=== PATIENT | male | born 1960 | race African-American/Black ===

== ENCOUNTER 2016-03-24 12:07 | Emergency (ER) | payer BC ==
[2016-03-24] MEDS ORDERED: LABETALOL 100 MG/20 ML VIAL ONE (14:01)
[2016-03-24] MEDS ORDERED: cloNIDine 0.1 MG TAB ONE (15:05)
== END 2016-03-24 16:02 | disposition home or self-care (01) ==
LOC: ER 12:07
DX: I10 Essential (primary) hypertension (principal)
CPT/HCPCS: 36415; 80053; 81001; 82553; 84484; 85025; 93005; 96374

== ENCOUNTER 2016-03-27 10:07 | Emergency (ER) | payer BC, MEDICAID | END 2016-03-27 12:38 | disposition home or self-care (01) | LOC: ER 10:07 | DX: I10 Essential (primary) hypertension (principal); R79.89 Other specified abnormal findings of blood chemistry ==